=== PATIENT | male | born 1995 | race Caucasian/White ===

== ENCOUNTER 2018-09-18 01:29 | Emergency (ER) | payer BC ==
[~2018-09-18] VITALS: Ht 193 cm; Wt 86.4 kg
[2018-09-18 01:37] VITALS: TEMP 97.9
[2018-09-18 03:09] VITALS: BP 123/50; PULSE 110
[2018-09-18] MEDS ORDERED: CEPHALEXIN500 M1 PO (03:18)
== END 2018-09-18 03:32 | disposition home or self-care (01) ==
LOC: COL.ER 01:29
DX: S61.211A Laceration without foreign body of left index finger without damage to nail, initial encounter (principal); S61.012A Laceration without foreign body of left thumb without damage to nail, initial encounter; S60.222A Contusion of left hand, initial encounter; W22.8XXA Striking against or struck by other objects, initial encounter; Y92.511 Restaurant or cafe as the place of occurrence of the external cause